=== PATIENT | male | born 1980 | race Caucasian/White ===

== ENCOUNTER 2016-12-03 08:43 | Emergency (ER) | payer BC ==
[~2016-12-03] VITALS: Ht 182.9 cm; Wt 100.0 kg
[2016-12-03 08:48] VITALS: BP 118/77; PULSE 72; RESP 14; TEMP 97.7; O2SAT 99
[2016-12-03] MEDS ORDERED: ACYC200C66 PO (09:17)
--- NOTE | 2016-12-03 09:17 | PD ---
HPI Chief Complaint: Complaint Time Seen by Provider: 09:13 Travel History International Travel<30 days: No Contact w/Intl Traveler<30days: No Traveled to known affect area: No History of Present Illness HPI 36-year-old male presents to the emergency Department with complaint of a lesion on his penis that he noticed on Thursday night. He says it was painful at first and has become less painful since. He denies penile discharge, testicular pain or swelling. Denies dysuria. Has engaged in unprotected sexual intercourse. Does not know if he's been exposed to STDs. Denies nausea , vomiting, abdominal pain. Denies fever, chills. Has not taken any medication or tried any treatments to alleviate his symptoms. Denies allergies. Denies significant past medical history. No other modifying factors or associated signs and symptoms. [facility] Social History Tobacco Use: No Allergies-Medications (Allergen,Severity, Reaction): Coded Allergies: No Known Allergies (Unverified , 12/03/16) Reported Meds & Prescriptions Reported Meds & Active Scripts Active Acyclovir 200 Mg Cap 200 Mg PO 5 TIMES A DAY 10 Days Review of Systems Except as stated in HPI: all other systems reviewed are Neg Physical Exam Narrative GENERAL: Well-nourished, well-developed male patient, in no acute distress; afebrile, nontoxic-appearing SKIN: Warm and dry. HEAD: Atraumatic. Normocephalic. EYES: Pupils equal and round. ENT: Mucosa pink and moist. NECK: Trachea midline. No lymphadenopathy. CARDIOVASCULAR: Regular rate. RESPIRATORY: No accessory muscle use. GASTROINTESTINAL: Rounded. GENITOURINARY: Uncircumcised. Scabbed lesion noted to the shaft of the penis; consistent with healing stage of genital herpes. Testes descended bilaterally without evidence of rotation. No lesions or erythema. No urethral discharge. MUSCULOSKELETAL: No obvious deformities. No clubbing. No cyanosis. No edema. NEUROLOGICAL: Awake and alert. Oriented 3. No obvious cranial nerve deficits. Motor grossly within normal limits. Normal speech. Moves all extremities. 5/5 strength to all extremities. PSYCHIATRIC: Appropriate mood and affect; insight and judgment normal. Data Data Last Documented VS Vital Signs Date Time Temp Pulse Resp B/P Pulse Ox O2 Delivery O2 Flow Rate FiO2 12/03/16 08:48 97.7 72 14 118/77 99 Room Air MDM Medical Decision Making Medical Screen Exam Complete: Yes Emergency Medical Condition: Yes Medical Record Reviewed: Yes Differential Diagnosis Genital warts, genital herpes, syphilis Narrative Course 36-year-old male physical exam consistent with genital herpes. No penile discharge or dysuria. Acyclovir prescribed for home. Instructed patient to follow up with primary care provider or health department for further STD testing. Patient verbalizes understanding and agreement with treatment plan. Patient is medically cleared and stable for discharge. Discussed reasons to return to the emergency department. Instructed patient to follow up with primary care provider. Patient agrees with treatment plan. The patients vital signs are stable and the patient is stable for outpatient follow-up and treatment. Patient discharged home, stable and in no acute distress. Diagnosis Primary Impression: Genital herpes Qualified Code: A60.01 - Herpes simplex infection of penis Referrals: Primary Care Physician Patient Instructions: General Instructions, Genital Herpes Simplex (ED), Sexually Transmitted Diseases (ED) Departure Forms: Tests/Procedures, Work Release Enter return to work date: Dec 04, 2016 Additional Instructions: Avoid sexual activity until you follow up with your primary care provider Avoid sexual activity while genital sores exist Inform all sexual partners within the past 3-6 months that they need to be evaluated and treated Use condoms every time you have sex Follow-up with primary care provider or health department Return to the emergency department immediately with worsening of symptoms Med/Other Pt SpecificInfo: Prescription(s) given Scripts Acyclovir 200 Mg Eoh025 Mg PO 5 TIMES A DAY 10 Days Ref 0 Prov:Lorna Bar 12/03/16 Disposition: 01 DISCHARGE HOME Condition: Stable Lorna Bar Dec 03, 2016 09:17
== END 2016-12-03 09:48 | disposition home or self-care (01) ==
LOC: NETRI 08:43
DX: A60.00 Herpesviral infection of urogenital system, unspecified (principal)
CPT/HCPCS: 99282